=== PATIENT | female | born 1935 | race Caucasian/White ===

== ENCOUNTER 2020-01-31 18:06 | Emergency (ER) | payer OTHER ==
[~2020-01-31] VITALS: Ht 162.6 cm; Wt 56.7 kg
[2020-01-31] MEDS ORDERED: CLONAZEPAM1 MG PO (18:22)
[2020-01-31] MEDS ORDERED: ZOLOFT50 MG PO (18:22)
[2020-01-31] MEDS ORDERED: SYNTHROID50 MCG PO (18:23)
[2020-01-31] MEDS ORDERED: MEMANTINE HCL10 MG PO ×2 (18:23→18:24)
[2020-01-31] MEDS ORDERED: CYMBALTA30 MG PO (18:23)
[2020-01-31] MEDS ORDERED: OMEPRAZOLE-BIC1 EAC1 PO (18:23)
[2020-01-31] MEDS ORDERED: DULOXETINE HCL40 MG PO (18:24)
== END 2020-01-31 22:11 | disposition home or self-care (01) ==
LOC: ER 18:06
DX: G89.3 Neoplasm related pain (acute) (chronic) (principal); C78.7 Secondary malignant neoplasm of liver and intrahepatic bile duct; C78.00 Secondary malignant neoplasm of unspecified lung; R10.12 Left upper quadrant pain

== ENCOUNTER 2020-02-17 02:32 | Inpatient (IN) | payer OTHER ==
[~2020-02-17] VITALS: Ht 160 cm; Wt 61.2 kg
[~2020-02-17 02:32] MED LIST: CLONAZEPAM1 MG PO; CYMBALTA30 MG PO; DULOXETINE HCL40 MG PO; MEMANTINE HCL10 MG PO; OMEPRAZOLE-BIC1 EAC1 PO; SYNTHROID50 MCG PO; ZOLOFT50 MG PO
--- NOTE | 2020-02-17 05:25 | NUR ---
PT ALERTA Y ORIENTADA X3 ESFERAS TRAIDA A ER POR PARAMEDICOS EN AMBULANCIA, EN COMPANIA DE FAMILIARES. REFIEREN DOLOR ABDOMINAL OLIVIER, DIFICULTAD AL RESPIRAR EN OCACIONES. AL MOMENTO DE REALIZAR TRIAGE, PT PRESENTA 87% DE SATURACION DE PULSO. SE UBICA PT EN UNIDAD DE DOLOR DE PECHO PARA CONECTARLA A MONITOR CARDIACO Y SATUROMETRO DE PULSO CONTINUO. DR SALAZAR EVALUA A PT. SE UBICA PT EN CUBICULO 18. SE CONECTA A MONITOR CARDIACO Y SATUROMETRO DE PULSO. SE REALIZA VENOPUNCION X2 EN BRAZO PREETHI CON # 18 Y EN BRAZO DERECHO CON ANGIO # 20, AMBOS PATENTES. SE ADMINISTRAN MEDICAMENTOS E IVLFUIDS ORDENADOS. SR GARCIA DE TERAPIA RESPIRATORIA REALIZA ABG ORDENADOS. SE REALIZA INSERCION DE LABOY CATETER CON TECNICAS ASEPTICAS Y ESTERILES, OUTPUT COLOR AMARILLO INTENSO 500ML AL MOMENTO. PT INTRANQUILA, INDICA EL DOLOR ABDOMINAL ES INCONTROLABLE, SE ADMINISTRA ATIVAN 2MG IV Y SE FACILITA O2 POR N/C A 2LT. 530AM- SE OBSERVA PT, EN DESCANZO, TRANQUILA Y SIN DIFICULTAD RESPIRATORIA. SE MANTIENE BAJO OBSERVACION POR CAMBIOS EN GENE.
--- NOTE | 2020-02-17 06:51 | NUR ---
PT TRANQUILA Y SIN DIFICULTAD RESPIRATORIA. AL MOMENTO EN DESCANZO, SIN DIFICULTAD RESPIRATORIA. SE ENTREGA A TURNO 7-3, S/V ESTABLES. VENOPUNCION EN ANTEBRAZO DERECHO E PREETHI # 18 PATENTES AMBOS. IVLFUIDS: 0.9NSS AT 120ML.HRS BAJANDO POR REGULADOR. LABOY PATENTE, SE DOCUMENTA INTAKE Y OUTPUT. PT EN DESCANZO. PENDIENTE RE-EVALUCION MEDICA.
--- NOTE | 2020-02-17 07:18 | NUR ---
PACIENTE HIPOACTIVA, DURMIENDO, BAJO LOS EFECTOS DE ATIVAN 2MG Y MORFINA 4MG QUE FUERON ADMINISTRADOS A LAS 520AM, ASISTIDA CON CANULA NASAL A 2 LT, BUEN PATRON RESPIRATORIO, SPO2 98%, PULMONES RIZWAN, CONECTADA A MONITOR CARDIACO PRESENTANDO TAQUICARDIA SINOSAL DE 101 LAT/MIN. ESTA CANALIZADA EN AMBOS BRAZOS, RECIBIENDO EN BRAZO LT 0.9% NSS A 120 ML/HR Y EN BRAZO RT SOLO TIENE SALINE LOCK. ABDOMEN JACKY EN CUADRANTES SUPERIORES, SE OBSERVA PARCHO DE FENTANYL 25 MCG, ABDOMEN BLANDO Y DEPRESIBLE EN CUADRANTES INFERIORES. SONDA URINARIA DRENANDO ORINA STEPHANE BACH. PACIENTE CONTINUA BAJO OBSERVACION EN ESPERA DE RE EVALUACION MEDICA.
--- NOTE | 2020-02-17 09:10 | NUR ---
DR DOMINGA RAVIO EVALUA PACIENTE Y ORDENA ADMINISTRAR BICARBONATO DE SODIO 100 MEQ EN 250 ML DE D5W FULL DRIP, LEVOPHEN 8 MG A 3 ML/HR Y RINGER LACTATE A 125 ML/HR, SE EJECUTAN ORDENES.
--- NOTE | 2020-02-17 10:16 | NUR ---
DR DOMINGA PACHECO ORDENA RETIRAR PARCHO DE FENTANYL, SE RETIRA EL MISMO.
[2020-02-18] MEDS ORDERED: EXELON1 EAC1 (07:59)
== END 2020-02-20 23:49 | disposition expired | DRG 871 ==
LOC: ER 02:32 → MEDI 10:31 → SEC-K 10:31 → MEDI 11:03
PROVIDERS: ADMIT Internal Medicine; ATTEND Internal Medicine
PROC: 0D9670Z Drainage of Stomach with Drainage Device, Via Natural or Artificial Opening (ICD-10-PCS; principal; 2020-02-17)
PROC: BW21ZZZ Computerized Tomography (CT Scan) of Abdomen and Pelvis (ICD-10-PCS; 2020-02-17)
PROC: 4A12X4Z Monitoring of Cardiac Electrical Activity, External Approach (ICD-10-PCS; 2020-02-17)
PROC: 02HV33Z Insertion of Infusion Device into Superior Vena Cava, Percutaneous Approach (ICD-10-PCS; 2020-02-19)
DX: A41.9 Sepsis, unspecified organism (principal); R65.21 Severe sepsis with septic shock; C78.6 Secondary malignant neoplasm of retroperitoneum and peritoneum; C78.7 Secondary malignant neoplasm of liver and intrahepatic bile duct; C78.02 Secondary malignant neoplasm of left lung; C78.01 Secondary malignant neoplasm of right lung; E87.2 Acidosis; C25.9 Malignant neoplasm of pancreas, unspecified; N17.8 Other acute kidney failure; E03.9 Hypothyroidism, unspecified; I10 Essential (primary) hypertension; Z20.828 Contact with and (suspected) exposure to other viral communicable diseases; E87.5 Hyperkalemia; D63.0 Anemia in neoplastic disease; I87.2 Venous insufficiency (chronic) (peripheral); Z66 Do not resuscitate